=== PATIENT | male | born 1995 | race Caucasian/White ===

== ENCOUNTER 2019-02-01 00:38 | Emergency (ER) | payer SELFPAY ==
[~2019-02-01] VITALS: Ht 177.8 cm; Wt 80.0 kg
[2019-02-01 00:49] VITALS: Ht 177.8 cm; Wt 80.0 kg
[2019-02-01] MEDS ORDERED: EC-NAPROSYN500 MG PO (02:18)
[2019-02-01] MEDS ORDERED: MUPIROCIN22 GM TOPICAL (02:18)
[2019-02-01] MEDS ORDERED: KEFLEX500 MG PO (02:18)
[2019-02-01 04:08] VITALS: BP 130/72
== END 2019-02-01 03:16 | disposition home or self-care (01) ==
LOC: D.ER 00:38
DX: S41.111A Laceration without foreign body of right upper arm, initial encounter (principal); X99.1XXA Assault by knife, initial encounter; Y93.89 Activity, other specified; Y92.89 Other specified places as the place of occurrence of the external cause; S09.90XA Unspecified injury of head, initial encounter